=== PATIENT | female | born 1995 | race Caucasian/White ===

== ENCOUNTER 2017-04-18 18:05 | Inpatient (IN) | payer OTHER ==
[~2017-04-18] VITALS: Ht 167.6 cm; Wt 101.0 kg
[2017-04-18] MEDS ORDERED: PRENATAL VITAM1 EAC7 PO (21:00)
== END 2017-04-21 10:00 | disposition home or self-care (01) | DRG 775 ==
LOC: FBCO 18:05 → FBC 20:00
PROVIDERS: ADMIT Obstetrics & Gynecology
PROC: 0HQ9XZZ Repair Perineum Skin, External Approach (ICD-10-PCS; principal; 2017-04-19)
PROC: 10E0XZZ Delivery of Products of Conception, External Approach (ICD-10-PCS; principal; 2017-04-19)
PROC: 3E033VJ Introduction of Other Hormone into Peripheral Vein, Percutaneous Approach (ICD-10-PCS; 2017-04-19)
PROC: 00HU33Z Insertion of Infusion Device into Spinal Canal, Percutaneous Approach (ICD-10-PCS; 2017-04-19)
DX: O42.02 Full-term premature rupture of membranes, onset of labor within 24 hours of rupture (principal); O70.0 First degree perineal laceration during delivery; O69.81X0 Labor and delivery complicated by cord around neck, without compression, not applicable or unspecified; Z3A.39 39 weeks gestation of pregnancy; Z37.0 Single live birth; O77.0 Labor and delivery complicated by meconium in amniotic fluid
CPT/HCPCS: 01960; 36415; 59025; 85027; 99213; J2540; J2590; J2795; J7120

== ENCOUNTER 2018-09-23 21:42 | Emergency (ER) | payer OTHER ==
[~2018-09-23] VITALS: Ht 170.2 cm; Wt 81.7 kg
[~2018-09-23 21:42] MED LIST: PRENATAL VITAM1 EAC7 PO
== END 2018-09-24 00:42 | disposition home or self-care (01) ==
LOC: ED 21:42
DX: O20.9 Hemorrhage in early pregnancy, unspecified (principal)
CPT/HCPCS: 36415; 81001; 84702; 85025; 99284

== ENCOUNTER 2020-03-19 01:28 | Inpatient (IN) | payer OTHER ==
[~2020-03-19] VITALS: Ht 170.2 cm; Wt 109.8 kg
--- NOTE | ~2020-03-19 | OR ---
[facility] [address] [place], [place] [address] Draft DATE OF OPERATION: 03/19/2020 SURGEON: Kimmy Cagle DO PREOPERATIVE DIAGNOSES: 1. Term intrauterine . 2. Failure to descend. 3. Failed vacuum delivery. POSTOPERATIVE DIAGNOSES: 1. Term intrauterine . 2. Failure to descend. 3. Failed vacuum delivery. 4. Persistent occiput posteiror positioning. PROCEDURE PERFORMED: Primary low transverse delivery. ANESTHESIA: Epidural. HEATING ELEMENT REPAIRER: Denny Hearn MD. ESTIMATED BLOOD LOSS: 1200 mL. COMPLICATIONS: None. FINDINGS: Viable female born in the ROP position with Apgars of 8 and 8, 1 and 5 minutes respectively. Thick meconium and a deeply engaged vertex. Normal bilateral tubes and ovaries. INDICATIONS: Ms. Harper is a very pleasant 24-year-old G2, P1 female, who presented to Labor and Delivery in spontaneous labor. She is GBS positive and received penicillin prophylaxis. AROM was performed after administration of her second dose of penicillin for moderate amount of clear fluid. The patient slowly progressed to complete and pushed with PATIENT NAME: WENDY BELTRAN OPERATIVE REPORT DATE OF : 95 REPORT #: [id number] PHYSICIAN: KIMMY CAGLE DO PCP: KIMMY CAGLE DO REPORT IS CONFIDENTIAL AND NOT TO BE RELEASED WITHOUT AUTHORIZATION [facility] [address] [place] [address] Draft contractions. heart tracing was reassuring throughout. However, the patient made slow progress pushing. Persistent OP position was noted. Decision was made to attempt vacuum assisted operative vaginal delivery. Two pulls were attempted and limited movement was noted and decision was made to abandon operative vaginal delivery and proceed with primary low transverse delivery. Risks, benefits, and alternatives were discussed in detail with the patient. The patient understands and wishes to proceed with the procedure. TECHNIQUE: The patient was taken to the operating room where a time-out was performed to confirm correct patient and correct procedure. Epidural anesthesia was bolused and found to be adequate. Ancef 2 g and azithromycin 500 mg were administered. After epidural was noted to be adequate, a Pfannenstiel skin incision was made and carried down to the fascia. The fascia was nicked in the midline and fascial incision was extended bilaterally using curved Rodrigues scissors. The fascia was grasped with Herman's, elevated, and the underlying rectus muscles dissected off bluntly and sharply. The rectus muscles were then divided in the midline and the peritoneum grasped with hemostats. The peritoneum was then entered sharply with Metzenbaum scissors. The incision was extended bilaterally using blunt dissection. Lower segment was identified and noted to be quite edematous. Hysterotomy was then performed using surgical scalpel. Thick meconium fluid was noted and hysterotomy was extended bilaterally using blunt dissection. Upon extension of the hysterotomy, both arms spontaneously delivered. The surgeon's hand was placed into the uterine cavity and the vertex noted to be deeply engaged. It was very gently flexed and brought into the maternal abdomen delivered with the assistance of fundal pressure. The remainder of the delivered spontaneously. The was vigorous and cried upon delivery and the cord was doubly clamped and cut. The was handed to the waiting pediatric team for further care. Cord blood was obtained for routine analysis and for gases. The placenta then delivered via expression with centrally inserted three-vessel cord noted. Brisk bleeding from bilateral uterine arteries was noted and these were quickly clamped to minimize blood loss. Hysterotomy was then repaired using 0 Monocryl, 1st ensuring excellent hemostasis at the uterine arteries bilaterally and then in a running locked suture. Second imbricating suture of 0 Monocryl was applied. Pitocin was previously administered per protocol and the uterus had been cleared of any remaining products of conception or clot. A small amount of oozing was noted in the midline. This was made hemostatic with Bovie electrocautery and with [id number] suture of 0 Monocryl. The pelvis was copiously irrigated and a small amount of oozing was noted at the peritoneal edge. This was made hemostatic with judicious use of Bovie electrocautery. Normal tubes and ovaries bilaterally. The lower uterine segment was quite edematous and there was a small amount of diffuse oozing. The pelvis was packed for several minutes and Tisseel was prepared. Tisseel was then applied to the lower uterine segment with excellent hemostasis. ACell sheet was applied to the lower uterine segment without difficulty. PATIENT NAME: WENDY BELTRAN OPERATIVE REPORT DATE OF : 95 REPORT #: [id number] PHYSICIAN: KIMMY CAGLE DO PCP: KIMMY CAGLE DO REPORT IS CONFIDENTIAL AND NOT TO BE RELEASED WITHOUT AUTHORIZATION [facility] [address] [place], [place] [address] Draft The peritoneum was then grasped with Irma clamps and reapproximated using 2-0 Vicryl in a running nonlocked manner. Rectus was examined and made hemostatic with Bovie electrocautery. The rectus muscles were plicated in the midline loosely using 0 Vicryl and three interrupted sutures. ACell powder was then applied to the rectus sheath with excellent hemostasis appreciated. Fascia was then reapproximated using 0 Vicryl in a running nonlocked manner. Subcu was examined and made hemostatic with Bovie electrocautery. Subcu was then reapproximated using 2-0 Vicryl in a running nonlocking manner. Skin was then reapproximated using surgical javed. The uterus was Crede'd for approximately an additional 100 mL of blood bringing estimated blood loss to 1200 mL. The patient was then taken to the PACU in good and stable condition. Sponge and instrument count was correct x2 at the end of the procedure. Dr. Hearn was present and participated in all portions of the procedure. Please see OB record for details of vacuum delivery. Kimmy Cagle DO JDW/MODL /[id number] Copies: ~ PATIENT NAME: WENDY BELTRAN OPERATIVE REPORT DATE OF : 95 REPORT #: [id number] PHYSICIAN: KIMMY CAGLE DO PCP: KIMMY CAGLE DO REPORT IS CONFIDENTIAL AND NOT TO BE RELEASED WITHOUT AUTHORIZATION
--- NOTE | 2020-03-19 02:30 | NUR ---
[facility] RAPID COVID TEST DONE PER ORDER. COVID TEST COLLECTED FROM BOTH NARES W/O ISSUE. PT TOLERATED WELL.
--- NOTE | 2020-03-19 13:19 | PR ---
[facility] [address] [facility] [place], [place] [address] Signed Progress Notes IP Datetime Report Generated by CPN: 03/19/2020 13:19 PROGRESS NOTES: [id number] Impression: Normal Progression of Labor Procedures: Sterile Vag Exam Plan: Anticipate Vaginal Delivery Informed Consent Obtain: Vaginal Delivery; Risks, Benefits and Alternatives Discussed VITAL SIGNS: [id number] Vital Signs: Reviewed; Within Normal Limits EXAM: [id number] Dilatation: 10.0 Effacement: 100 Station: 0 Contractions: q 3-4 min MEMBRANES: [id number] Comments: Pt seen and examined. Doing well. Pushing well w/ contractions. Anticipate soon. Reviewed anticipated course of second stage of labor. FETUS A: [id number] FHR Baseline: 130 Variability: Moderate 6-25bpm Accelerations: 15X15 Decelerations: None FHR Category: Category I Presentation: Vertex Comments on Fetus A: No evidence of metabolic acidosis FETUS B: [id number] Signing Physician: Kimmy Cagle DO Copies: ~ *Electronically Signed* 03/19/20 1319 KIMMY CAGLE DO PATIENT NAME: WENDY BELTRAN PROGRESS NOTE DATE OF : 95 PHYSICIAN: KIMMY CAGLE DO RPT #: [id number] REPORT IS CONFIDENTIAL AND NOT TO BE RELEASED WITHOUT AUTHORIZATION
--- NOTE | 2020-03-19 14:18 | PR ---
[facility] [address] [place], [place] [address] Signed Progress Notes IP Datetime Report Generated by CPN: 03/19/2020 14:18 PROGRESS NOTES: [id number] Impression: Normal Progression of Labor Other Impressions: Slow progression 2nd stage Procedures: Sterile Vag Exam Plan: Continue Present Management Informed Consent Obtain: Vaginal Delivery; Section Delivery; Vacuum/Forceps Assist; Risks, Benefits and Alternatives Discussed VITAL SIGNS: [id number] Vital Signs: Reviewed; Within Normal Limits EXAM: [id number] Dilatation: 10.0 Effacement: 100 Station: 0 Contractions: q 3-4 min MEMBRANES: [id number] Comments: Physician has been at bedside pushing w/ pt. Continued ROP position. Significant caput noted, and slow progression of descent noted. Reviewed EFW _8#8oz, hx prior spontaneous vaginal delivery, and occiupt posterior position. Recommended continue pushing efforts with anticipated . Reviewed risk of shoulder dystocia and indications for operative vaginal delivery vs C/S if needed. Pt and partner understand and agree, and wish to continue maternal pushing. All questions answered FETUS A: [id number] FHR Baseline: 130 Variability: Moderate 6-25bpm Accelerations: 15X15 Decelerations: None FHR Category: Category I Presentation: Vertex Comments on Fetus A: No evidence of metabolic acidosis FETUS B: [id number] Signing Physician: Kimmy Cagle DO Copies: *Electronically Signed* 03/19/20 141 KIMMY CAGLE DO PATIENT NAME: WENDY BELTRAN PROGRESS NOTE DATE OF : 95 PHYSICIAN: CAGLEKIMMY DO RPT #: [id number] REPORT IS CONFIDENTIAL AND NOT TO BE RELEASED WITHOUT AUTHORIZATION [address] [place], [place] [address] Signed ~ *Electronically Signed* 03/19/20 1418 CAGLE,KIMMY Pressley DO PATIENT NAME: WENDY BELTRAN PROGRESS NOTE DATE OF : 95 PHYSICIAN: KIMMY CAGLE DO RPT #: [id number] REPORT IS CONFIDENTIAL AND NOT TO BE RELEASED WITHOUT AUTHORIZATION
--- NOTE | 2020-03-19 15:16 | PR ---
[facility] [address] [place], [place] [address] Signed Progress Notes IP Datetime Report Generated by CPN: 03/19/2020 15:16 PROGRESS NOTES: [id number] Impression: Reassuring Heart Rate Other Impressions: slow progression of descent Procedures: Sterile Vag Exam Plan: Continue Present Management Other Plans: Attempt operative vaginal delivery - vacuum vs primary LTCS Informed Consent Obtain: Vaginal Delivery; Section Delivery; Vacuum/Forceps Assist; Risks, Benefits and Alternatives Discussed VITAL SIGNS: [id number] Vital Signs: Reviewed; Within Normal Limits EXAM: [id number] Dilatation: 10.0 Effacement: 100 Station: 0 Contractions: q 3-4 min MEMBRANES: [id number] Comments: Continue slow progress of descent, but vertex low and would be candidate for vacuum vs C/S. Reviewed vacuum delivery in detail including risks/benefits and C/S. Pt understands and agrees. OR set up and crew ready. Will attempt vacuum. Consents signed. FETUS A: [id number] FHR Baseline: 130 Variability: Moderate 6-25bpm Accelerations: 15X15 Decelerations: None FHR Category: Category I Presentation: Vertex Comments on Fetus A: No evidence of metabolic acidosis FETUS B: [id number] Signing Physician: Kimmy Cagle DO Copies: ~ *Electronically Signed* 03/19/20 2110 KIMMY CAGLE DO PATIENT NAME: WENDY BELTRAN PROGRESS NOTE DATE OF : 95 PHYSICIAN: KIMMY CAGLE DO RPT #: [id number] REPORT IS CONFIDENTIAL AND NOT TO BE RELEASED WITHOUT AUTHORIZATION
--- NOTE | 2020-03-19 16:56 | NUR ---
03/19/201655 Asuncion Ponce 1644: PT ARRIVES TO [facility] RM 104 FROM OR VIA BED. PT AWAKE AND ALERT. PT DENIES PAIN OR NAUSEA ON ARRIVAL. SIG OTHER IN RM WITH BABY. PT HOC TO APPROX 45 DEGREES. BED PLUGGED IN.
--- NOTE | 2020-03-20 12:49 | PR ---
[facility] [address] [facility] [place], [place] [address] Signed PP Progress Notes Datetime Report Generated by CPN: 03/20/2020 12:48 SUBJECTIVE: [id number] Pain: Within Normal Limits Nausea/Vomiting: Denies Flatus: Yes Bowel Movement: No Vital Signs: [id number] Vital Signs: Reviewed; Within Normal Limits Cardiovascular: Normal Respiratory: Normal Abdomen/Uterus: Normal Lochia: Normal Vulva/Perineum: Not Done Breasts: Not Done CVA Tenderness: Normal Extremities: Normal Incision: Normal Exam Comments: Fundus firm U-2 nontender. Incision healing well IMPRESSION/PLAN/PROCEDURES: [id number] Impression: Normal Progression Plan: Continue Present Management Progress Notes: Pt seen and examined. Doing well. Ambulating, voiding, and tolerating full diet. Some dizziness this morning that has resolved. No questions or concerns. Reviewed failed vacuum and C/S yesterday and all questions answered. Anticipate d/c home tomorrow. Signing Physician: Kimmy Cagle DO Copies: ~ *Electronically Signed* 03/20/20 1248 KIMMY CAGLE DO PATIENT NAME: WENDY BELTRAN PROGRESS NOTE DATE OF : 95 PHYSICIAN: KIMMY CAGLE DO RPT #: [id number] REPORT IS CONFIDENTIAL AND NOT TO BE RELEASED WITHOUT AUTHORIZATION
--- NOTE | 2020-03-21 12:08 | PR ---
[facility] [address] [facility] [place], [place] [address] Signed PP Progress Notes Datetime Report Generated by CPN: 03/21/2020 12:08 SUBJECTIVE: [id number] Pain: Within Normal Limits Nausea/Vomiting: Denies Flatus: Yes Bowel Movement: No Vital Signs: [id number] Vital Signs: Reviewed Cardiovascular: Normal Respiratory: Normal Abdomen/Uterus: Normal Lochia: Normal Vulva/Perineum: Not Done Breasts: Not Done CVA Tenderness: Normal Extremities: Normal Incision: Normal Progress: Normal Exam Comments: Fundus firm U-2 nontender. Pt up to chair w/ infant. Will evaluate incision prior to d/c home IMPRESSION/PLAN/PROCEDURES: [id number] Impression: Normal Progression Plan: Discharge Progress Notes: Pt seen and examined. Doing well. Ambulating, voiding, and tolerating full diet. Pain and lochia minimal. Breast and bottle feeding. No fevers/chills or other concerns. Desires d/c home today. Reviewed d/c instructions in detail. All questions answered. Signing Physician: Kimmy Cagle DO Copies: ~ *Electronically Signed* 03/21/20 1994 KIMMY CAGLE DO PATIENT NAME: WENDY BELTRAN PROGRESS NOTE DATE OF : 95 PHYSICIAN: KIMMY CAGLE DO RPT #: [id number] REPORT IS CONFIDENTIAL AND NOT TO BE RELEASED WITHOUT AUTHORIZATION
[2020-03-22] MEDS ORDERED: IBUPROFEN800 MG PO (19:01)
== END 2020-03-21 16:20 | disposition home or self-care (01) | DRG 788 ==
LOC: FBCO 01:28 → FBC 01:59
PROVIDERS: ADMIT Obstetrics & Gynecology; ATTEND Obstetrics & Gynecology
PROC: 10907ZC Drainage of Amniotic Fluid, Therapeutic from Products of Conception, Via Natural or Artificial Opening (ICD-10-PCS; 2020-03-19)
PROC: 00HU33Z Insertion of Infusion Device into Spinal Canal, Percutaneous Approach (ICD-10-PCS; 2020-03-19)
PROC: 3E0R3BZ Introduction of Anesthetic Agent into Spinal Canal, Percutaneous Approach (ICD-10-PCS; 2020-03-19)
PROC: 10J07ZZ Inspection of Products of Conception, Via Natural or Artificial Opening (ICD-10-PCS; 2020-03-19)
PROC: 10D00Z1 Extraction of Products of Conception, Low, Open Approach (ICD-10-PCS; principal; 2020-03-19 15:05)
DX: O99.214 Obesity complicating childbirth (principal); E66.9 Obesity, unspecified; Z3A.39 39 weeks gestation of pregnancy; Z37.0 Single live birth; O64.0XX0 Obstructed labor due to incomplete rotation of fetal head, not applicable or unspecified; O66.5 Attempted application of vacuum extractor and forceps; O77.0 Labor and delivery complicated by meconium in amniotic fluid; O76 Abnormality in fetal heart rate and rhythm complicating labor and delivery; O28.2 Abnormal cytological finding on antenatal screening of mother; O99.824 Streptococcus B carrier state complicating childbirth
CPT/HCPCS: 01961; 36415; 85025; 85027; 85384; A9270; C9803; J0456; J0690; J1650; J1885; J2250; J2270; J2274; J2405; J2540; J2590; J2765; J2795; J3010; J7121; U0003

== ENCOUNTER 2020-03-22 18:47 | Emergency (ER) | payer OTHER ==
[~2020-03-22] VITALS: Ht 182.9 cm; Wt 113.4 kg
[2020-03-22] MEDS ORDERED: IBUPROFEN800 MG PO (19:01)
== END 2020-03-22 20:49 | disposition home or self-care (01) ==
LOC: ED 18:47
DX: O99.893 Other specified diseases and conditions complicating puerperium (principal); R60.0 Localized edema; M79.602 Pain in left arm
CPT/HCPCS: 93971; 99283-25